=== PATIENT | female | born 1980 | race Native Hawaiian/Other Pacific Islander ===

== ENCOUNTER 2018-11-25 19:57 | Inpatient (IN) | payer OTHER ==
[2018-11-25] MEDS ORDERED: Sodium Chloride 0.9% 1,000 ML IV STA (20:50)
[2018-11-25 21:00] LABS: HEMOGLOBIN 12.3 g/dL (12.0-16.0); MEAN CELL VOLUME 67.1 fl (80.0-105.0); MEAN CORPUSCULAR HEMOGLOBIN 22.2 pg (25.0-35.0); MEAN CORPUSCULAR HGB CONC 33.1 g/dl (31.0-37.0); MEAN PLATELET VOLUME 8.5 fl (7.0-11.0); RBC 5.54 10^6/uL (3.5-6.1); RED CELL DISTRIBUTION WIDTH 15.7 % (11.5-14.5); WHITE BLOOD COUNT 10.5 10^3/uL (4.5-11.0)
[2018-11-25 21:05] LABS: INR 1.08; PARTIAL THROMBOPLASTIN TIME 37.1 Seconds (26.9-38.3)
[2018-11-25 21:06] LABS: ALB/GLOB RATIO 1.3 (1.1-1.8); ALBUMIN 4.4 g/dL (3.0-4.8); ALT/SGPT 22 U/L (7-56); AST/SGOT 45 U/L (14-36); BLOOD UREA NITROGEN 12 mg/dL (7-21); CALCIUM 9.2 mg/dL (8.4-10.5); GFR NON-AFRICAN AMERICAN > 60
--- NOTE | 2018-11-25 21:14 | ED PDOC ---
Arrival/HPI - General Chief Complaint: Dizziness/Lightheaded Time Seen by Provider: 11/25/18 20:20 Historian: Patient, Spouse - History of Present Illness Narrative History of Present Illness (Text): 11/25/18 21:10 37 year old female, with no significant past medical history, presents to the emergency department complaining of sudden onset dizziness this morning. Patient states symptoms have persisted throughout the day when going to work. Patient informs of repeated vomiting today. Patient's informs of episodes of near syncope throughout the day. Patient also informs of associated headache. Patient denies any fever, chills, chest pain, shortness of breath, diarrhea, abdominal pain, or any other complaint. Time/Duration: 24 hours Symptom Onset: Gradual Symptom Course: Unchanged Activities at Onset: Light Context: Home, Work Past Medical History - Provider Review Nursing Documentation Reviewed: Yes - Infectious Disease Hx of Infectious Diseases: None - Cardiac Hx Cardiac Disorders: No - Pulmonary Hx Respiratory Disorders: Yes Hx Asthma: Yes - Neurological Hx Neurological Disorder: No - HEENT Hx HEENT Disorder: No - Renal Hx Renal Disorder: No - Endocrine/Metabolic Hx Endocrine Disorders: No - Hematological/Oncological Hx Blood Disorders: No - Integumentary Hx Dermatological Disorder: No - Musculoskeletal/Rheumatological Hx Musculoskeletal Disorders: No - Gastrointestinal Hx Gastrointestinal Disorders: Yes Hx Gastroesophageal Reflux: Yes - Genitourinary/Gynecological Hx Genitourinary Disorders: No - Psychiatric Hx Psychophysiologic Disorder: No Hx Substance Use: No - Surgical History Hx Section: Yes - Anesthesia Hx Anesthesia: Yes Hx Anesthesia Reactions: No Hx Malignant Hyperthermia: No Family/Social History - Physician Review Nursing Documentation Reviewed: Yes Family/Social History: No Known Family HX Smoking Status: Never Smoked Hx Alcohol Use: No Hx Substance Use: No Allergies/Home Meds Allergies/Adverse Reactions: Allergies No Known Allergies Allergy (Verified 11/25/18 20:08) Home Medications: Home Meds Medication Instructions Recorded Confirmed No Known Home Med 11/25/18 11/25/18 Review of Systems - Physician Review All systems were reviewed & negative as marked: Yes - Review of Systems Constitutional: absent: Fevers, Night Sweats Respiratory: absent: SOB Cardiovascular: absent: Chest Pain Gastrointestinal: Nausea, Vomiting. absent: Abdominal Pain, Diarrhea Neurological: Headache, Dizziness Physical Exam Vital Signs Reviewed: Yes Vital Signs Temp Pulse Resp BP Pulse Ox 11/25/18 20:08 98.2 F 90 14 121/81 100 Temperature: Afebrile Blood Pressure: Normal Pulse: Regular Respiratory Rate: Normal Appearance: Positive for: Well-Appearing, Non-Toxic, Comfortable Pain Distress: None Mental Status: Positive for: Alert and Oriented X 3 - Systems Exam Head: Present: Atraumatic, Normocephalic Pupils: Present: PERRL Extroacular Muscles: Present: EOMI Conjunctiva: Present: Normal Mouth: Present: Dry. No: Moist Mucous Membranes Neck: Present: Normal Range of Motion Respiratory/Chest: Present: Clear to Auscultation, Good Air Exchange. No: Respiratory Distress, Accessory Muscle Use Cardiovascular: Present: Regular Rate and Rhythm, Normal S1, S2. No: Murmurs Abdomen: No: Tenderness, Distention, Peritoneal Signs Back: Present: Normal Inspection Upper Extremity: Present: Normal Inspection. No: Cyanosis, Edema Lower Extremity: Present: Normal Inspection. No: Edema Neurological: Present: GCS=15, CN II-XII Intact, Speech Normal, Motor Func Grossly Intact, Normal Sensory Function Skin: Present: Warm, Dry, Normal Color. No: Rashes Psychiatric: Present: Alert, Oriented x 3, Normal Insight, Normal Concentration Medical Decision Making ED Course and Treatment: 11/25/18 21:19 Impression: 37 year old female presents with dizziness near syncope. Plan: -- CT Head -- EKG -- Cardiac Iso, CMP -- Chest X-ray -- Pepcid -- Zofran -- Reassess and disposition Prior Visits: Notes and results from previous visits were reviewed. Progress Notes: 11/25/18 22:50 EKG Reviewed by me, shows: normal sinus rhythm @ 75bpm sinus arythmia no acute changes 11/25/18 23:03 Spoke with medical laboratory manager and house doctor, Dr Wei, who accepts to the hospitalist service. - Lab Interpretations Lab Results: PT 12.0 SECONDS (9.4-12.5) 11/25/18 20:30 INR 1.08 11/25/18 20:30 APTT 37.1 Seconds (26.9-38.3) 11/25/18 20:30 Total Bilirubin 0.5 mg/dL (0.2-1.3) 11/25/18 20:30 AST 45 U/L (14-36) H 11/25/18 20:30 ALT 22 U/L (7-56) 11/25/18 20:30 Alkaline Phosphatase 66 U/L (38-126) 11/25/18 20:30 Total Protein 7.7 g/dL (5.8-8.3) 11/25/18 20:30 Albumin 4.4 g/dL (3.0-4.8) 11/25/18 20:30 Globulin 3.3 gm/dL 11/25/18 20:30 Albumin/Globulin Ratio 1.3 (1.1-1.8) 11/25/18 20:30 - RAD Interpretation Radiology Orders: 11/25/18 20:49 HEAD W/O CONTRAST [CT] Stat CHEST PORTABLE [RAD] Stat - Medication Orders Current Medication Orders: Sodium Chloride (Sodium Chloride 0.9%) 1,000 mls @ 999 mls/hr IV .Q1H1M STA Stop: 11/25/18 21:50 Discontinued Medications Famotidine (Pepcid) 20 mg IVP STAT STA Stop: 11/25/18 20:52 Ondansetron HCl (Zofran Inj) 4 mg IVP ONCE ONE Stop: 11/25/18 20:51 - Scribe Statement The provider has reviewed the documentation as recorded by the Noni Gonzales Provider Scribe Attestation: All medical record entries made by the Scribjosh were at my direction and personally dictated by me. I have reviewed the chart and agree that the record accurately reflects my personal performance of the history, physical exam, medical decision making, and the department course for this patient. I have also personally directed, reviewed, and agree with the discharge instructions and disposition. Disposition/Present on Arrival - Present on Arrival Any Indicators Present on Arrival: No History of DVT/PE: No History of Uncontrolled Diabetes: No Urinary Catheter: No History of Decub. Ulcer: No History Surgical Site Infection Following: None - Disposition Have Diagnosis and Disposition been Completed?: Yes Diagnosis: Near syncope, NSTEMI (non-ST elevated myocardial infarction) Disposition: HOSPITALIZED Disposition Time: 23:00 Patient Problems: Current Active Problems Problem Status Onset NSTEMI (non-ST elevated myocardial infarction) Acute Near syncope Acute Condition: STABLE
[2018-11-25 21:55] LABS: TROPONIN I 0.27 ng/mL
--- NOTE | 2018-11-25 23:03 | CP.PCM.HP ---
<InderjitRafael - Last Filed: 11/26/18 01:48> History of Present Illness - History of Present Illness History of Present Illness: Rafael Jansen, PGY1 H&P for Dr. Wei cc: "left sided chest pain with associated dizziness" Patient is a 37 year old female, with no significant past medical history, who presents to the emergency department complaining of sudden onset left sided chest pain with associated dizziness this morning while she was going to work. She denies ever having prior symptoms like this before. Denies radiation of chest pain to arm/jaw/back. Pain is described as sharp. She does not feel like the room is spinning. Denies loss of consciousness, seizure activity, foaming of mouth, bowel/bladder incontinence. She was not diaphoretic during time of chest pain. She denies any history of kidney disease. She did have an episode of vomiting as well prior to arrival. Currently, she denies headache, shortness of breath, abdominal pain, fever, chills, bowel/bladder changes. Last time she followed up with a PMD was over 2 years ago. She does not see any specialists. A full 12 point ROS was conducted and unremarkable except as stated above. PMD: none PMHx: none PSHx: Meds: none Allergies: NKDA SocialHx: denies smoking. Social drinker, occasional drink with dinner. Denies illicit drug use. FamHx: mother had HTN, father had HTN ( at age 60s), aunt had an TN. Present on Admission - Present on Admission Any Indicators Present on Admission: No Review of Systems - Review of Systems All systems: reviewed and no additional remarkable complaints except (as per HPI) Past Patient History - Infectious Disease Hx of Infectious Diseases: None - Past Social History Smoking Status: Never Smoked - CARDIAC Hx Cardiac Disorders: No - PULMONARY Hx Respiratory Disorders: Yes Hx Asthma: Yes - NEUROLOGICAL Hx Neurological Disorder: No - HEENT Hx HEENT Problems: No - RENAL Hx Chronic Kidney Disease: No - ENDOCRINE/METABOLIC Hx Endocrine Disorders: No - HEMATOLOGICAL/ONCOLOGICAL Hx Blood Disorders: No - INTEGUMENTARY Hx Dermatological Problems: No - MUSCULOSKELETAL/RHEUMATOLOGICAL Hx Musculoskeletal Disorders: No - GASTROINTESTINAL Hx Gastrointestinal Disorders: Yes Hx Gastroesophageal Reflux: Yes - GENITOURINARY/GYNECOLOGICAL Hx Genitourinary Disorders: No - PSYCHIATRIC Hx Psychophysiologic Disorder: No Hx Substance Use: No - SURGICAL HISTORY Hx Section: Yes - ANESTHESIA Hx Anesthesia: Yes Hx Anesthesia Reactions: No Hx Malignant Hyperthermia: No Meds Allergies/Adverse Reactions: Allergies Allergy/AdvReac Type Severity Reaction Status Date / Time No Known Allergies Allergy Verified 11/25/18 20:08 Physical Exam - Constitutional Appears: No Acute Distress - Head Exam Head Exam: ATRAUMATIC, NORMAL INSPECTION, NORMOCEPHALIC - Eye Exam Eye Exam: EOMI, Normal appearance Pupil Exam: NORMAL ACCOMODATION - ENT Exam ENT Exam: Mucous Membranes Moist - Respiratory Exam Respiratory Exam: Clear to Auscultation Bilateral. absent: Accessory Muscle Use, Chest Wall Tenderness, Rales, Rhonchi, Wheezes, Stridor - Cardiovascular Exam Cardiovascular Exam: RRR, +S1, +S2. absent: Systolic Murmur - GI/Abdominal Exam GI & Abdominal Exam: Normal Bowel Sounds, Soft. absent: Distended, Firm, Guarding, Rebound, Rigid, Tenderness - Extremities Exam Extremities exam: Positive for: full ROM, normal capillary refill, normal inspection, pedal pulses present. Negative for: calf tenderness, pedal edema, tenderness Additional comments: Negative Michael sign. - Back Exam Back exam: NORMAL INSPECTION - Neurological Exam Neurological exam: Alert, CN II-XII Intact, Oriented x3 - Psychiatric Exam Psychiatric exam: Normal Affect, Normal Mood - Skin Skin Exam: Dry, Intact, Normal Color, Warm Results - Vital Signs Recent Vital Signs: Last Vital Signs Temp 98.2 F 11/25/18 20:08 Pulse 90 11/25/18 20:08 Resp 14 11/25/18 20:08 BP 121/81 11/25/18 20:08 Pulse Ox 100 11/25/18 20:08 - Labs Result Diagrams: 11/25/18 20:30 11/25/18 20:30 Labs: Laboratory Results - last 24 hr 11/25/18 11/25/18 11/25/18 20:30 20:30 20:30 WBC 10.5 RBC 5.54 Hgb 12.3 Hct 37.2 MCV 67.1 L MCH 22.2 L MCHC 33.1 RDW 15.7 H Plt Count 368 MPV 8.5 PT 12.0 INR 1.08 APTT 37.1 Sodium 137 Potassium 3.7 Chloride 101 Carbon Dioxide 26 Anion Gap 14 BUN 12 Creatinine 0.5 L Est GFR ( Amer) > 60 Est GFR (Non-Af Amer) > 60 Random Glucose 126 H Calcium 9.2 Total Bilirubin 0.5 AST 45 H ALT 22 Alkaline Phosphatase 66 Lactate Dehydrogenase 533 Total Creatine Kinase 151 Troponin I 0.27 H* Total Protein 7.7 Albumin 4.4 Globulin 3.3 Albumin/Globulin Ratio 1.3 Assessment & Plan - Assessment and Plan (Free Text) Assessment: Patient is a 37 year old female, with no significant past medical history, who presents to the emergency department complaining of sudden onset left sided chest pain with associated dizziness this morning while she was going to work. Plan: Chest Pain Likely 2/2 NSTEMI - Initial troponin 0.27, trend serial troponins q6 - TSH, Hgb A1c, Lipid Panel - ASA 81mg PO daily - Lovenox SC 1mg/kg q12 - Lipitor 20mg HS - Metoprolol 12.5 mg daily - Serial ekg in morning - Echo ordered - Cardiology consult (Dr. Orlando) for elevated troponins - Keep patient NPO for now - EKG on admission: NSR, HR 75 - CXR: no active disease ppx: - Lovenox - SCD Diet: NPO Dispo: Will admit patient to telemetry. Follow up troponins. Further recs from Cardiology. Case was discussed and reviewed with Attending Physician, Dr. Wei <Michelle Wei - Last Filed: 11/26/18 01:52> Results - Vital Signs Recent Vital Signs: Last Vital Signs Temp 97.9 F 11/25/18 23:44 Pulse 87 11/25/18 23:44 Resp 18 11/26/18 00:32 BP 112/73 11/25/18 23:44 Pulse Ox 97 11/25/18 23:44 - Labs Result Diagrams: 11/25/18 20:30 11/25/18 20:30 Labs: Laboratory Results - last 24 hr 11/25/18 11/25/18 11/25/18 20:30 20:30 20:30 WBC 10.5 RBC 5.54 Hgb 12.3 Hct 37.2 MCV 67.1 L MCH 22.2 L MCHC 33.1 RDW 15.7 H Plt Count 368 MPV 8.5 PT 12.0 INR 1.08 APTT 37.1 Sodium 137 Potassium 3.7 Chloride 101 Carbon Dioxide 26 Anion Gap 14 BUN 12 Creatinine 0.5 L Est GFR ( Amer) > 60 Est GFR (Non-Af Amer) > 60 Random Glucose 126 H Calcium 9.2 Total Bilirubin 0.5 AST 45 H ALT 22 Alkaline Phosphatase 66 Lactate Dehydrogenase 533 Total Creatine Kinase 151 Troponin I 0.27 H* Total Protein 7.7 Albumin 4.4 Globulin 3.3 Albumin/Globulin Ratio 1.3 Triglycerides Cholesterol LDL Cholesterol Direct HDL Cholesterol TSH 3rd Generation 11/25/18 11/25/18 11/26/18 20:30 20:30 01:00 WBC RBC Hgb Hct MCV MCH MCHC RDW Plt Count MPV PT INR APTT Sodium Potassium Chloride Carbon Dioxide Anion Gap BUN Creatinine Est GFR ( Amer) Est GFR (Non-Af Amer) Random Glucose Calcium Total Bilirubin AST ALT Alkaline Phosphatase Lactate Dehydrogenase Total Creatine Kinase Troponin I 0.19 H* D Total Protein Albumin Globulin Albumin/Globulin Ratio Triglycerides 59 Cholesterol 185 LDL Cholesterol Direct 93 HDL Cholesterol 57 TSH 3rd Generation < 0.02 L Attending/Attestation - Attestation I have personally seen and examined this patient.: Yes I have fully participated in the care of the patient.: Yes I have reviewed all pertinent clinical information: Yes Notes (Text): 11/26/18 01:49 Pt seen with the resident by the bedside. Case discussed in detail. Agree with documentation,assessment and plan of treatment.
[2018-11-25] MEDS ORDERED: Enoxaparin 60 mg Syringe SC STA (23:27)
[2018-11-26 00:13] LABS: HDL CHOLESTEROL 57 mg/dL (29-60)
[2018-11-26 00:24] LABS: LDL CHOLESTEROL 93 mg/dL (0-129)
[2018-11-26 07:55] LABS: HEMOGLOBIN 11.8 g/dL (12.0-16.0); MEAN CELL VOLUME 67.8 fl (80.0-105.0); MEAN CORPUSCULAR HEMOGLOBIN 21.6 pg (25.0-35.0); MEAN CORPUSCULAR HGB CONC 31.9 g/dl (31.0-37.0); MEAN PLATELET VOLUME 8.6 fl (7.0-11.0); RBC 5.46 10^6/uL (3.5-6.1); WHITE BLOOD COUNT 7.9 10^3/uL (4.5-11.0)
[2018-11-26] MEDS ORDERED: Metoprolol Succinate 25 mg XL Tab PO SCH ×2 (08:00→10:00)
[2018-11-26 08:07] LABS: ALB/GLOB RATIO 1.3 (1.1-1.8); ALBUMIN 3.8 g/dL (3.0-4.8); ALT/SGPT 24 U/L (7-56); AST/SGOT 36 U/L (14-36); BLOOD UREA NITROGEN 9 mg/dL (7-21); CALCIUM 8.8 mg/dL (8.4-10.5); GFR NON-AFRICAN AMERICAN > 60
--- NOTE | 2018-11-26 08:26 | RAD ---
Date of service: 11/25/2018 HISTORY: dizzy COMPARISON: No prior. TECHNIQUE: 1 view obtained. FINDINGS: LUNGS: No active pulmonary disease. PLEURA: No significant pleural effusion identified, no pneumothorax apparent. CARDIOVASCULAR: No aortic atherosclerotic calcification present. Normal cardiac size. No pulmonary vascular congestion. OSSEOUS STRUCTURES: No significant abnormalities. VISUALIZED UPPER ABDOMEN: Normal. OTHER FINDINGS: None. IMPRESSION: No acute cardiopulmonary disease appreciated.
[2018-11-26] MEDS ORDERED: Iohexol 350 MG/100 ML VIAL ONE (08:27)
--- NOTE | 2018-11-26 10:02 | CT ---
Date of service: 11/26/2018 PROCEDURE: CT Chest with contrast (Pulmonary Angiogram) HISTORY: pulm embolism COMPARISON: None available. TECHNIQUE: Axial computed tomography images were obtained of the chest in the pulmonary arterial phase of enhancement. Coronal and sagittal reformatted images were created and reviewed. Intravenous contrast dose: Omnipaque 350, 100 cc Radiation dose: Total exam DLP = 212.35 mGy-cm. This CT exam was performed using one or more of the following dose reduction techniques: Automated exposure control, adjustment of the mA and/or kV according to patient size, and/or use of iterative reconstruction technique. FINDINGS: PULMONARY ARTERIES: Unremarkable. No pulmonary embolism. AORTA: No acute findings. No thoracic aortic aneurysm. No aortic atherosclerotic calcification or mural plaque present. Conjoint origin left common carotid and brachiocephalic arteries off the superior arch. LUNGS: Unremarkable. No nodule, mass or pulmonary consolidation. PLEURAL SPACES: Unremarkable. No effusion or pneumothorax. HEART: Unremarkable. No cardiomegaly. No significant pericardial effusion. LYMPH NODES: No significant lymphadenopathy. BONES, CHEST WALL: Unremarkable. No fracture or destructive lesion OTHER FINDINGS: Incidental heterogeneity of bilateral visualized thyroid parenchyma. Incidental imaging through the upper abdomen reveals the stomach distended with retained fluid and food. IMPRESSION: No CT evidence of pulmonary embolus. No infiltrate, pleural or pericardial effusion. No significant lymphadenopathy or thoracic aortic aneurysm.
--- NOTE | 2018-11-26 10:54 | CARD ---
APPROVED REPORT Date of service: 11/25/2018 EKG Measurement Heart [id number] <Conclusion> Normal sinus rhythm with sinus arrhythmia Normal ECG
--- NOTE | 2018-11-26 11:02 | CT ---
Date of service: 11/25/2018 PROCEDURE: CT HEAD WITHOUT CONTRAST. HISTORY: dizzy COMPARISON: None available. TECHNIQUE: Axial computed tomography images were obtained through the head/brain without intravenous contrast. Supplemental Coronal and Sagittal projections created and reviewed. Radiation dose: Total exam DLP = 934.16 mGy-cm. This CT exam was performed using one or more of the following dose reduction techniques: Automated exposure control, adjustment of the mA and/or kV according to patient size, and/or use of iterative reconstruction technique. FINDINGS: HEMORRHAGE: No intracranial hemorrhage. BRAIN: No mass effect or edema. No atrophy or chronic microvascular ischemic changes. VENTRICLES: Unremarkable. No hydrocephalus. CALVARIUM: Unremarkable. PARANASAL SINUSES: Chronic ethmoid air cell disease. MASTOID AIR CELLS: Unremarkable as visualized. No inflammatory changes. OTHER FINDINGS: None. IMPRESSION: No acute intracranial abnormalities. No significant findings to account for the clinical presentation. Concordant results (preliminary interpretation) provided by [facility]. Procedure Completed: 22:18. Preliminary Report: Interpreted and electronically signed: 23:21. Final Interpretation: 10:50. November 26, 2018.
[2018-11-26] MEDS: Enoxaparin 60 mg Syringe SC SCH ×2 (11:43→22:07)
--- NOTE | 2018-11-26 13:24 | CON ---
DATE OF CONSULTATION: 11/26/2018 CARDIOLOGY CONSULTATION HISTORY: The patient is a 37-year-old woman, who presents with several days of shortness of breath with episodic focal chest pain. PAST MEDICAL HISTORY: The patient's past medical history is free of cardiac disease. No recent travel abroad. The patient does not suffer from hypertension or diabetes mellitus. SOCIAL HISTORY: The patient does not smoke, but does take control pills. REVIEW OF SYSTEMS: The patient has a remote (underlying) cardiac disease in the past. No other cardiac symptomatology noted. No edema in the lower extremities. PHYSICAL EXAMINATION: VITAL SIGNS: Blood pressure 119/71, the heart rate is in the 80s. NECK: Negative JVD. LUNGS: Without rales. CARDIAC: Heart rate S1, S2. EXTREMITIES: Without edema. LABORATORY DATA: EKG is within normal limits. Troponins of 0.27, coming down to 0.18. Hemoglobin is 11.8. IMPRESSION: 1. Dyspnea. 2. Intermittent focal chest pain. 3. Non-ST elevation myocardial infarction. 4. Need to rule out pulmonary embolism. 5. Anemia. PLAN: Given these findings, after checking her urine to rule out , we will obtain a CT scan of the chest to rule out pulmonary embolism. I agree with full-dose anticoagulation. Echocardiogram has been ordered. The patient apparently has recurrent syncope. If these tests are negative, we will consider cardiac catheterization. Zacarias Orlando MD
--- NOTE | 2018-11-26 16:41 | CARD ---
APPROVED REPORT Date of service: 11/26/2018 EKG Measurement Heart [id number] CT 110P10 [id number] <Conclusion> Sinus rhythm with short CT Otherwise normal ECG
--- NOTE | 2018-11-26 18:55 | CARD ---
APPROVED REPORT Date of service: 11/26/2018 EXAM: Two-dimensional and M-mode echocardiogram with Doppler and color Doppler. INDICATION Chest Pain Non STEMI 2D DIMENSIONS Left Atrium (2D)3.4 (1.6-4.0cm)IVSd0.9 (0.7-1.1cm) LVDd4.6 (3.9-5.9cm)PWd0.9 (0.7-1.1cm) LVDs3.1 (2.5-4.0cm)FS (%) 31.3 % LVEF (%)59.2 (>50%) M-Mode DIMENSIONS Aortic Root2.20 (2.2-3.7cm)Aortic Cusp Exc.1.30 (1.5-2.0cm) Aortic Valve AoV Peak Lfsuvksv387.0cm/Sal Peak GR.10mmHg Mitral Valve MV E Njfpccen96.8cm/sMV A Bmglumhr47.9cm/sE/A ratio1.4 TDI Lateral E' Peak V13.80cm/sMedial E' Peak V10.90cm/sE/Lateral E'6.2 E/Medial E'7.9 Tricuspid Valve TR Peak Oldzwpcs202jz/sRAP [id number] Peak Gr.11mmHg [id number] LEFT VENTRICLE The left ventricle is normal size. There is normal left ventricular wall thickness. The left ventricular function is normal. The left ventricular ejection fraction is within the normal range. There is normal LV segmental wall motion. The left ventricular diastolic function is normal. RIGHT VENTRICLE The right ventricle is normal size. There is normal right ventricular wall thickness. The right ventricular systolic function is normal. ATRIA The left atrium size is normal. The right atrium size is normal. AORTIC VALVE The aortic valve is normal in structure. No aortic regurgitation is present. There is no aortic valvular stenosis. MITRAL VALVE The mitral valve is normal in structure. There is no mitral valve regurgitation noted. There is no mitral valve stenosis. TRICUSPID VALVE The tricuspid valve is normal in structure. There is trace to mild tricuspid regurgitation. PULMONIC VALVE The pulmonary valve is normal in structure. There is no pulmonic valvular regurgitation. GREAT VESSELS The aortic root is normal in size. The IVC is normal in size and collapses >50% with inspiration. PERICARDIAL EFFUSION There is no pericardial effusion. <Conclusion> There is normal left ventricular wall thickness. The left ventricular function is normal. The left ventricular ejection fraction is within the normal range. There is normal LV segmental wall motion. The left ventricular diastolic function is normal. There is trace to mild tricuspid regurgitation.
[2018-11-27 06:57] LABS: HEMOGLOBIN 11.6 g/dL (12.0-16.0); MEAN CELL VOLUME 67.7 fl (80.0-105.0); MEAN CORPUSCULAR HEMOGLOBIN 21.6 pg (25.0-35.0); MEAN CORPUSCULAR HGB CONC 31.9 g/dl (31.0-37.0); MEAN PLATELET VOLUME 8.6 fl (7.0-11.0); RBC 5.38 10^6/uL (3.5-6.1); WHITE BLOOD COUNT 6.8 10^3/uL (4.5-11.0)
[2018-11-27 07:17] LABS: ALB/GLOB RATIO 1.2 (1.1-1.8); ALBUMIN 3.6 g/dL (3.0-4.8); ALT/SGPT 24 U/L (7-56); AST/SGOT 33 U/L (14-36); BLOOD UREA NITROGEN 10 mg/dL (7-21); CALCIUM 8.5 mg/dL (8.4-10.5); GFR NON-AFRICAN AMERICAN > 60
--- NOTE | 2018-11-27 10:24 | PN ---
DATE: 11/27/2018 SUBJECTIVE: The patient is chest-pain free. PHYSICAL EXAMINATION: VITAL SIGNS: Blood pressure is 119/70, heart rate is in the 70s. NECK: Negative JVD. LUNGS: Without rales. HEART: S1, S2. EXTREMITIES: Without edema. LABORATORY DATA: Hemoglobin 11.6, BUN and creatinine unremarkable. IMPRESSION: 1. Non-ST elevation myocardial infarction. 2. CT scan is negative for pulmonary embolism. 3. Anemia. 4. Dizziness. PLAN: Given these findings, I will discontinue her beta-portia today. The patient is for cardiac catheterization in the morning. I have discussed the risks and benefits with the patient and her in detail. Zacarias Orlando MD
--- NOTE | 2018-11-27 14:22 | CP.PCM.PN ---
<Roberto Concepcion - Last Filed: 11/27/18 22:37> Subjective - Date & Time of Evaluation Date of Evaluation: 11/27/18 Time of Evaluation: 07:30 - Subjective Subjective: Progress Note for Hospitalist Service Patient seen and examined this AM. Patient reporting symptoms of dizziness when opening her eyes. Denies dizziness when getting up and down from laying or sitting down. She denies chest pain, shortness of breath, abdominal pain, nausea, vomiting, fever, chills. Objective - Vital Signs/Intake and Output Vital Signs (last 24 hours): Temp Pulse Resp BP Pulse Ox 98.2 F 65 18 124/78 96 11/27/18 12:00 11/27/18 12:00 11/27/18 12:00 11/27/18 12:00 11/27/18 06:00 Intake and Output: 11/27/18 11/27/18 06:59 18:59 Intake Total 1940 Output Total 6 Balance 1934 - Medications Medications: Current Medications Aspirin (Ecotrin) 81 mg PO DAILY [facility] Last Admin: 11/27/18 09:58 Dose: 81 mg Atorvastatin Calcium (Lipitor) 40 mg PO DIN [facility] Clopidogrel Bisulfate (Plavix) 75 mg PO DAILY [facility] Last Admin: 11/27/18 09:58 Dose: 75 mg - Labs Labs: 11/27/18 06:30 11/27/18 06:30 PT 12.0 SECONDS (9.4-12.5) 11/25/18 20:30 INR 1.08 11/25/18 20:30 APTT 37.1 Seconds (26.9-38.3) 11/25/18 20:30 - Constitutional Appears: Non-toxic - Head Exam Head Exam: ATRAUMATIC, NORMOCEPHALIC - Eye Exam Eye Exam: EOMI, PERRL Pupil Exam: NORMAL ACCOMODATION - ENT Exam ENT Exam: Mucous Membranes Moist, Normal Exam - Respiratory Exam Respiratory Exam: Clear to Ausculation Bilateral, NORMAL BREATHING PATTERN - Cardiovascular Exam Cardiovascular Exam: REGULAR RHYTHM, +S1, +S2 - GI/Abdominal Exam GI & Abdominal Exam: Soft, Normal Bowel Sounds. absent: Firm, Guarding, Rigid - Extremities Exam Extremities Exam: Full ROM, Normal Capillary Refill. absent: Calf Tenderness - Neurological Exam Neurological Exam: Alert, Awake, Normal Gait, Oriented x3 Neuro motor strength exam: Left Upper Extremity: 5, Right Upper Extremity: 5, Left Lower Extremity: 5, Right Lower Extremity: 5 - Psychiatric Exam Psychiatric exam: Normal Affect, Normal Mood - Skin Skin Exam: Dry, Intact Assessment and Plan - Assessment and Plan (Free Text) Assessment: 37 year old female with no significant past medical history who was admitted for NSTEMI. Currently undergoing evaluation with Dr. Orlando and cardiology with potential [facility] scheduled for tomorrow AM. Plan: NSTEMI - Patient with elevated troponin on admission, downtrended - EKG without ST segment elevation/depression - Chest CT No CT evidence of pulmonary embolus. No infiltrate, pleural or p ericardial effusion. No significant lymphadenopathy or thoracic aortic aneurysm - Echocardiogram: Normal LV wall thickness, LV function is normal, left ventricular diastolic function is normal, trace to mild TR - CXR no active disease - Lipitor 20mg Daily, ASA 81mg - Lovenox 1mg/kg Q12HR - Cardiology consulted, Dr. Orlando - [facility] planned for tomorrow in AM - BB stopped by cardiology - Follow up Cardio for recs post cath GI/DVT ppx DIET: NPO in the morning Patient seen, case and plan discussed with attending Dr. Rodriguez <Clint Rodriguez - Last Filed: 11/28/18 16:57> Objective - Vital Signs/Intake and Output Vital Signs (last 24 hours): Temp Pulse Resp BP Pulse Ox 98.3 F 82 20 122/76 100 11/28/18 14:45 11/28/18 14:45 11/28/18 14:45 11/28/18 14:45 11/28/18 14:45 Intake and Output: 11/28/18 11/28/18 06:59 18:59 Intake Total 0 Balance 0 - Labs Labs: 11/28/18 06:30 11/28/18 06:30 PT 12.0 SECONDS (9.4-12.5) 11/25/18 20:30 INR 1.08 11/25/18 20:30 APTT 37.1 Seconds (26.9-38.3) 11/25/18 20:30 Attending/Attestation - Attestation I have personally seen and examined this patient.: Yes I have fully participated in the care of the patient.: Yes I have reviewed all pertinent clinical information, including history, physical exam and plan: Yes Notes (Text): 11/28/18 16:57 Medical record note made by the resident after discussion with my direction and input after the patient was personally seen and examined by me. I have reviewed the chart and agree that the record accurately reflects by personal performance of the history, physical exam, data review, and medical decision-making, in the course for the patient. I have also personally directed the plan of care.
[2018-11-28 07:03] LABS: MEAN CELL VOLUME 67.6 fl (80.0-105.0); MEAN CORPUSCULAR HEMOGLOBIN 21.6 pg (25.0-35.0); MEAN CORPUSCULAR HGB CONC 31.9 g/dl (31.0-37.0); MEAN PLATELET VOLUME 8.7 fl (7.0-11.0); RBC 5.56 10^6/uL (3.5-6.1); RED CELL DISTRIBUTION WIDTH 15.8 % (11.5-14.5); WHITE BLOOD COUNT 8.2 10^3/uL (4.5-11.0)
[2018-11-28] MEDS ORDERED: Lidocaine 2% Inj (20ml) ONE (07:09)
[2018-11-28] MEDS ORDERED: Phenylephrine 10 mg/ml Inj ONE (07:12)
[2018-11-28] MEDS ORDERED: Iohexol 350mgl/ml 50 ML ONE (07:12)
[2018-11-28] MEDS ORDERED: Nitroglycerin 50mg in D5W 0 MG/0 ML BOTTLE IV ONE (07:12)
[2018-11-28] MEDS ORDERED: Iodixanol 320 MG/ML 200 ML BOTTLE IV ONE (07:12)
[2018-11-28] MEDS ORDERED: Iodixanol 320 MG/ML 100 ML BOTTLE IV ONE (07:12)
[2018-11-28 07:38] LABS: ALB/GLOB RATIO 1.2 (1.1-1.8); ALBUMIN 3.8 g/dL (3.0-4.8); ALT/SGPT 22 U/L (7-56); AST/SGOT 42 U/L (14-36); BLOOD UREA NITROGEN 13 mg/dL (7-21); GFR NON-AFRICAN AMERICAN > 60
[2018-11-28] MEDS ORDERED: Midazolam 2 MG/2 ML VIAL ONE ×2 (07:58→08:03)
[2018-11-28] MEDS ORDERED: Iodixanol 320 mg/ml 150 ml Bottle IV ONE (08:12)
[2018-11-28] MEDS ORDERED: Sodium Chloride 0.9% 1,000 ML IV SCH (08:45)
--- NOTE | 2018-11-28 09:39 | CARDCATH ---
PROCEDURE DATE: 11/28/2018 HISTORY: The patient is a 37-year-old woman with no cardiac risk factors who presents with elevated troponins. Her presenting symptoms was sudden dizziness. She underwent a CT scan of the chest to rule out pulmonary embolism which was negative. Because of unexplained elevated troponins, a cardiac catheterization was recommended. PROCEDURE: Left heart catheterization with coronary arteriography and left ventriculogram with supra-aortic valvular injection. The right femoral artery was cannulated with 6-[place] sheath. There were no complications. The right femoral artery was cannulated with a 6-[place]er sheath. I performed moderate sedation which included the presence of an independent trained observer that assisted in monitoring the patient's level of consciousness and physiologic status. After administration of Versed and fentanyl, my intra service time was 30 minutes. Findings on catheterization revealed a left dominant circulation. The RCA was within normal limits. The left main artery was normal. The LAD and diagonal vessels were free of significant disease. The circumflex artery was within normal limits. LV function was normal with an EF of 60%. Supra-aortic valvular injection revealed a normal a descending and aortic arch. Manual compression was used to close the femoral artery site. The patient tolerated the procedure well. In summary, the procedure revealed normal coronary arteries, normal LV function. No aortic insufficiency and normal aortic root and arch. Given these findings, the patient's elevated troponin cannot be explained; however, there is no evidence of coronary artery disease nor LV function disease. No evidence for aortic arch ascending aorta disease and no pulmonary embolism by CT scan. Given these findings, the patient can be discharged later on today. Followup instructions has been given to the patient in detail. Zacarias Orlando MD
[2018-11-28 13:34] VITALS: O2SAT 100
[2018-11-28 14:51] VITALS: BP 122/76; PULSE 82; RESP 20; TEMP 98.3
--- NOTE | 2018-11-28 15:55 | CP.PCM.DIS ---
<Roberto Concepcion - Last Filed: 11/28/18 15:43> Provider - Provider Date of Admission: 11/25/18 22:58 Attending physician: Clint Rodriguez MD Primary care physician: NO PRIMARY CARE PROVIDER Consults: 11/25/18 23:07 Consult [Physician Consult] Routine Comment: Consulting Provider: Zacarias Orlando Consulting Physician: Zacarias Orlando Reason for Consult: + trop Time Spent in preparation of Discharge (in minutes): 35 Hospital Course - Lab Results Lab Results: Most Recent Lab Values WBC 8.2 10^3/uL (4.5-11.0) D 11/28/18 06:30 RBC 5.56 10^6/uL (3.5-6.1) 11/28/18 06:30 Hgb 12.0 g/dL (12.0-16.0) 11/28/18 06:30 Hct 37.6 % (36.0-48.0) 11/28/18 06:30 MCV 67.6 fl (80.0-105.0) L 11/28/18 06:30 MCH 21.6 pg (25.0-35.0) L 11/28/18 06:30 MCHC 31.9 g/dl (31.0-37.0) 11/28/18 06:30 RDW 15.8 % (11.5-14.5) H 11/28/18 06:30 Plt Count 346 10^3/uL (120.0-450.0) 11/28/18 06:30 MPV 8.7 fl (7.0-11.0) 11/28/18 06:30 PT 12.0 SECONDS (9.4-12.5) 11/25/18 20:30 INR 1.08 11/25/18 20:30 APTT 37.1 Seconds (26.9-38.3) 11/25/18 20:30 Sodium 140 mmol/L (132-148) 11/28/18 06:30 Potassium 3.7 mmol/L (3.6-5.0) 11/28/18 06:30 Chloride 106 mmol/L (98-107) 11/28/18 06:30 Carbon Dioxide 26 mmol/L (21-33) 11/28/18 06:30 Anion Gap 12 (10-20) 11/28/18 06:30 BUN 13 mg/dL (7-21) 11/28/18 06:30 Creatinine 0.6 mg/dl (0.7-1.2) L 11/28/18 06:30 Est GFR ( Amer) > 60 11/28/18 06:30 Est GFR (Non-Af Amer) > 60 11/28/18 06:30 Random Glucose 82 mg/dL (70-110) 11/28/18 06:30 Hemoglobin A1c 5.8 % (4.2-6.5) 11/25/18 20:30 Calcium 9.0 mg/dL (8.4-10.5) 11/28/18 06:30 Total Bilirubin 0.3 mg/dL (0.2-1.3) 11/28/18 06:30 AST 42 U/L (14-36) H D 11/28/18 06:30 ALT 22 U/L (7-56) 11/28/18 06:30 Alkaline Phosphatase 57 U/L (38-126) 11/28/18 06:30 Lactate Dehydrogenase 533 U/L (333-699) 11/25/18 20:30 Total Creatine Kinase 151 U/L (35-230) 11/25/18 20:30 Troponin I 0.18 ng/mL H* 11/26/18 07:15 Total Protein 6.9 g/dL (5.8-8.3) 11/28/18 06:30 Albumin 3.8 g/dL (3.0-4.8) 11/28/18 06:30 Globulin 3.1 gm/dL 11/28/18 06:30 Albumin/Globulin Ratio 1.2 (1.1-1.8) 11/28/18 06:30 Triglycerides 59 mg/dL (35-160) 11/25/18 20:30 Cholesterol 185 mg/dL (130-200) 11/25/18 20:30 LDL Cholesterol Direct 93 mg/dL (0-129) 11/25/18 20:30 HDL Cholesterol 57 mg/dL (29-60) 11/25/18 20:30 Free T4 1.38 ng/dL (0.78-2.19) 11/26/18 07:04 Free T3 pg/mL 5.12 pg/mL (2.77-5.27) 11/26/18 07:04 TSH 3rd Generation < 0.02 mIU/mL (0.46-4.68) L 11/25/18 20:30 - Hospital Course Hospital Course: 37 year old female with no past medical history presented to the ED with complaint of suddent onset, sharp, left sided chest pain with associated dizziness and one episode of vomiting in the morning. She last saw a PMD over 2 years ago and does not see any specialists. Patient was evaluated in the ED with EKG that showed normal sinus rhythm @[address] changes, CXR showed no active disease, and head CT was negative. Troponins were elevated x3., troponin highest elevation of 0.27. TSH was significantly decreased but free T3/T4 were normal. On admission, patient was started on Aspirin 81 mg, Lipitor 20 mg, Metoprolol 12.5 mg. Pulmonary angiogram showed no evidence of pulmonary embolus, infiltrate, pleural or pericardial effusion. Echo showed normal heart function with LVEF 59%. Cardiology was consulted and performed diagnostic cardiac catheterization which revealed normal LV function with EF 60% and no coronary artery disease.Patient was found to be stable and ready for discharge. Patient was told to follow up with his PCP within 3-5 days. Patient was told to start taking Lipitor 10 mg and Aspirin 81 mg. Patient was told to follow up with Sr. Pricing Analyst within 1 week. Patient was told to return to the emergency department if he had any new or concerning symptoms. This is a brief summary of the events that transpired at the hospital. For more information, please refer to the hospital documentation. Discharge Exam - Head Exam Head Exam: ATRAUMATIC, NORMOCEPHALIC - Eye Exam Eye Exam: EOMI, PERRL - Respiratory Exam Respiratory Exam: Clear to PA & Lateral, NORMAL BREATHING PATTERN. absent: Rales, Rhonchi - Cardiovascular Exam Cardiovascular Exam: REGULAR RHYTHM, +S1, +S2 - GI/Abdominal Exam GI & Abdominal Exam: Normal Bowel Sounds, Unremarkable - Extremities Exam Extremities exam: normal inspection, pedal pulses present - Neurological Exam Neurological exam: Alert, CN II-XII Intact, Normal Gait, Oriented x3, Reflexes Normal - Psychiatric Exam Psychiatric exam: Normal Affect, Normal Mood - Skin Skin Exam: Dry, Intact Discharge Plan - Discharge Medications Prescriptions: Aspirin [Low Dose Aspirin EC] 81 mg PO DAILY #30 tablet. Atorvastatin [Lipitor] 10 mg PO DIN #30 tab - Follow Up Plan Condition: STABLE Disposition: HOME/ ROUTINE Instructions: Heart Healthy Diet, Cardiac Catheterization (DC), Heart Disease in Women (DC), Lowering Your Risk of Heart Disease, Near Fainting (DC) Additional Instructions: Follow up with your primary care physician within 7-10 days upon discharge Follow up with Sr. Pricing Analyst with Dr. Orlando in 10-[address] Orlando post cath instructions Take medications as prescribed to you Return to the nearest emergency department if you experience chest pain, shortness of breath, numbness, focal deficits Referrals: PCP,NO [Primary Care Provider] - <Clint Rodriguez - Last Filed: 11/28/18 16:56> Provider - Provider Date of Admission: 11/25/18 22:58 Attending physician: Clint Rodriguez MD Primary care physician: RAVIN PRIMARY CARE PROVIDER Consults: 11/25/18 23:07 Consult [Physician Consult] Routine Comment: Consulting Provider: Zacarias Orlando Consulting Physician: Zacarias Orlando Reason for Consult: + trop Hospital Course - Lab Results Lab Results: Most Recent Lab Values WBC 8.2 10^3/uL (4.5-11.0) D 11/28/18 06:30 RBC 5.56 10^6/uL (3.5-6.1) 11/28/18 06:30 Hgb 12.0 g/dL (12.0-16.0) 11/28/18 06:30 Hct 37.6 % (36.0-48.0) 11/28/18 06:30 MCV 67.6 fl (80.0-105.0) L 11/28/18 06:30 MCH 21.6 pg (25.0-35.0) L 11/28/18 06:30 MCHC 31.9 g/dl (31.0-37.0) 11/28/18 06:30 RDW 15.8 % (11.5-14.5) H 11/28/18 06:30 Plt Count 346 10^3/uL (120.0-450.0) 11/28/18 06:30 MPV 8.7 fl (7.0-11.0) 11/28/18 06:30 PT 12.0 SECONDS (9.4-12.5) 11/25/18 20:30 INR 1.08 11/25/18 20:30 APTT 37.1 Seconds (26.9-38.3) 11/25/18 20:30 Sodium 140 mmol/L (132-148) 11/28/18 06:30 Potassium 3.7 mmol/L (3.6-5.0) 11/28/18 06:30 Chloride 106 mmol/L (98-107) 11/28/18 06:30 Carbon Dioxide 26 mmol/L (21-33) 11/28/18 06:30 Anion Gap 12 (10-20) 11/28/18 06:30 BUN 13 mg/dL (7-21) 11/28/18 06:30 Creatinine 0.6 mg/dl (0.7-1.2) L 11/28/18 06:30 Est GFR ( Amer) > 60 11/28/18 06:30 Est GFR (Non-Af Amer) > 60 11/28/18 06:30 Random Glucose 82 mg/dL (70-110) 11/28/18 06:30 Hemoglobin A1c 5.8 % (4.2-6.5) 11/25/18 20:30 Calcium 9.0 mg/dL (8.4-10.5) 11/28/18 06:30 Total Bilirubin 0.3 mg/dL (0.2-1.3) 11/28/18 06:30 AST 42 U/L (14-36) H D 11/28/18 06:30 ALT 22 U/L (7-56) 11/28/18 06:30 Alkaline Phosphatase 57 U/L (38-126) 11/28/18 06:30 Lactate Dehydrogenase 533 U/L (333-699) 11/25/18 20:30 Total Creatine Kinase 151 U/L (35-230) 11/25/18 20:30 Troponin I 0.18 ng/mL H* 11/26/18 07:15 Total Protein 6.9 g/dL (5.8-8.3) 11/28/18 06:30 Albumin 3.8 g/dL (3.0-4.8) 11/28/18 06:30 Globulin 3.1 gm/dL 11/28/18 06:30 Albumin/Globulin Ratio 1.2 (1.1-1.8) 11/28/18 06:30 Triglycerides 59 mg/dL (35-160) 11/25/18 20:30 Cholesterol 185 mg/dL (130-200) 11/25/18 20:30 LDL Cholesterol Direct 93 mg/dL (0-129) 11/25/18 20:30 HDL Cholesterol 57 mg/dL (29-60) 11/25/18 20:30 Free T4 1.38 ng/dL (0.78-2.19) 11/26/18 07:04 Free T3 pg/mL 5.12 pg/mL (2.77-5.27) 11/26/18 07:04 TSH 3rd Generation < 0.02 mIU/mL (0.46-4.68) L 11/25/18 20:30 Attending/Attestation - Attestation I have personally seen and examined this patient.: Yes I have fully participated in the care of the patient.: Yes I have reviewed all pertinent clinical information, including history, physical exam and plan: Yes Notes (Text): 11/28/18 16:50 Medical record note made by the resident after discussion with my direction and input after the patient was personally seen and examined by me. I have reviewed the chart and agree that the record accurately reflects by personal performance of the history, physical exam, data review, and medical decision-making, in the course for the patient. I have also personally directed the plan of care. 37 year old female with no past medical history wasa admitted with left sided chest pain. EKG showed normal sinus rhythm @[address] changes, She was found to have elevated troponin, , troponin highest elevation of 0.27. Patient was treated with anticoagulation. CT angio chest was negative for Pulmonary embolism. Echo showed normal systolic function. Patient was evaluated by cardiology and underwent cardiac catherization that showed normal coronaries. Patient will be discharged home on ASA 81 mg po daily and lipitor 20 mg po daily. Management plan was discussed in detail with patient. Education was provided.
== END 2018-11-28 16:14 | disposition home or self-care (01) | DRG 282 ==
LOC: ED 19:57 → ERH 22:58 → 2RNO 11-26 00:20 → 2RSO 11-28 09:05
PROVIDERS: ADMIT Internal Medicine; ATTEND Internal Medicine
PROC: 4A023N7 Measurement of Cardiac Sampling and Pressure, Left Heart, Percutaneous Approach (ICD-10-PCS; principal; 2018-11-28)
PROC: B211YZZ Fluoroscopy of Multiple Coronary Arteries using Other Contrast (ICD-10-PCS; 2018-11-28)
PROC: B215YZZ Fluoroscopy of Left Heart using Other Contrast (ICD-10-PCS; 2018-11-28)
DX: I21.4 Non-ST elevation (NSTEMI) myocardial infarction (principal); D64.9 Anemia, unspecified; K21.9 Gastro-esophageal reflux disease without esophagitis; Z82.49 Family history of ischemic heart disease and other diseases of the circulatory system